=== PATIENT | male | born 2000 | race Caucasian/White ===

== ENCOUNTER → 2024-11-15 | Outpatient (CLI) | payer OTHER, BC ==
--- NOTE | 2024-11-15 21:44 | MR ---
EXAMINATION TYPE: MR knee RT wo con DATE OF EXAM: 11/15/2024 COMPARISON: NONE HISTORY: right knee pain, locking and swelling x1 year TECHNIQUE: Multiplanar, multisequence images of the knee is performed without IV contrast. FINDINGS: MEDIAL MENISCUS: Anterior and posterior horns are intact without tear. LATERAL MENISCUS: Horizontal increased signal body appears to extend to superior surface coronal imag e 23. CRUCIATE LIGAMENTS: The anterior and posterior cruciate ligaments are intact and unremarkable. COLLATERAL LIGAMENTS: The medial collateral ligament and lateral collateral ligament complex are inta ct and unremarkable. EXTENSOR MECHANISM: Visualized quadriceps and patellar tendons are intact. Increased signal distal qu adriceps tendon and proximal patellar tendon. EFFUSION: No significant suprapatellar joint effusion. POPLITEAL CYST: No popliteal/phan cyst. TRICOMPARTMENT SPACES: Tricompartmental joint spaces are preserved. No significant spurring. CARTILAGE: Tricompartment articular cartilage is preserved. BONE MARROW SIGNAL: No focal abnormal marrow signal is appreciated. OTHER: Multi septated cystic change posterior aspect of the central distal femur. IMPRESSION: 1. Subtle horizontal tear central body of lateral meniscus. 2. Mild tendinosis distal quadriceps tendon and proximal patellar tendon. [facility], , 11/15/2024 9:42 PM
== END | disposition home or self-care (01) ==
LOC: RADMRIMAIN 19:45
PROVIDERS: ATTEND Orthopaedic Surgery Sports Medicine
DX: S83.8X1A Sprain of other specified parts of right knee, initial encounter (principal); S83.281A Other tear of lateral meniscus, current injury, right knee, initial encounter; X58.XXXA Exposure to other specified factors, initial encounter